=== PATIENT | female | born 1940 | race Caucasian/White ===

== ENCOUNTER 2019-05-06 18:07 | Inpatient (IN) | payer OTHER ==
[~2019-05-06] VITALS: Ht 160 cm; Wt 49.9 kg
[~2019-05-06 18:07] MED LIST: LAC PO; LEVAQUIN750 MG PO
[2019-05-06 18:12] VITALS: Ht 160 cm; Wt 49.9 kg
[2019-05-06 21:01] LABS: CALCIUM 9.3 mg/dL (8.5-10.1); CARBON DIOXIDE 30.8 mmol/L (21-32); CHLORIDE SERUM 99 mmol/L (98-107); GLUCOSE SERUM 99 mg/dL (74-106); POTASSIUM SERUM 4.2 mmol/L (3.5-5.1); SODIUM SERUM 138 mmol/L (136-145)
[2019-05-06 21:06] LABS: ALBUMIN 3.6 g/dL (3.4-5.0); ALKALINE PHOSPHATASE 58 U/L (46-116); ALT/SGPT 20 U/L (14-59); AST/SGOT 32 U/L (15-37); BILIRUBIN TOTAL 0.91 mg/dL (0.20-1.00); TOTAL PROTEIN, SERUM 7.9 g/dL (6.4-8.2)
[2019-05-06] MEDS ORDERED: DURAGESIC1 EAC1 TOP (21:12)
[2019-05-06] MEDS ORDERED: APAP/OXYCODONE1 TA4 PO (21:13)
[2019-05-06] MEDS ORDERED: ELA50 PO (21:14)
[2019-05-06] MEDS ORDERED: GABAPENTIN100 M2 PO (21:14)
[2019-05-06] MEDS ORDERED: VENTOLIN H0.09 MG/A1 IH (21:15)
[2019-05-06] MEDS ORDERED: IPRATROPIUM BROM3 M2 IH (21:18)
[2019-05-06] MEDS ORDERED: TRELEGY ELLIPT1 EACH IH (21:18)
[2019-05-06 21:22] LABS: BASOPHIL % 0.2 % (0-2); PLATELET COUNT 222 x10^3mcL (130-400); RED CELL DISTRIBUTION WIDTH 14.9 % (11.5-14.5)
[2019-05-06 21:39] LABS: CHOLESTEROL/HDL RATIO 3.9
[2019-05-06 21:41] LABS: FREE T4 1.05 ng/dL (0.76-1.46); FREE THYROXINE INDEX 1.6 ug/dL (1.4-4.5); T4(THYROXINE) 5.4 ug/dL (4.7-13.3)
[2019-05-06 21:46] LABS: T3 TOTAL 0.92 ng/mL
[2019-05-07] VITALS (7 sets, daily range): BP systolic 105–160; BP diastolic 57–98
[2019-05-07 04:45] LABS: microscopic required? YES; urine erythrocyte TRACE (NEGATIVE)
[2019-05-07 06:29] LABS: BASOPHIL % 0.3 % (0-2); PLATELET COUNT 218 x10^3mcL (130-400)
[2019-05-07 06:47] LABS: CALCIUM 8.8 mg/dL (8.5-10.1); CARBON DIOXIDE 28.6 mmol/L (21-32); CHLORIDE SERUM 98 mmol/L (98-107); CREATININE SERUM 0.9 mg/dL (0.6-1.0); GLUCOSE SERUM 91 mg/dL (74-106); POTASSIUM SERUM 4.7 mmol/L (3.5-5.1); SODIUM SERUM 137 mmol/L (136-145)
[2019-05-07 06:53] LABS: RED CELL DISTRIBUTION WIDTH 14.6 % (11.5-14.5)
[2019-05-08 05:43] VITALS: BP 157/67
[2019-05-08 06:14] LABS: BASOPHIL % 0.1 % (0-2); PLATELET COUNT 205 x10^3mcL (130-400); RED CELL DISTRIBUTION WIDTH 14.3 % (11.5-14.5)
[2019-05-08 07:16] LABS: CALCIUM 9.1 mg/dL (8.5-10.1); CARBON DIOXIDE 29.1 mmol/L (21-32); CHLORIDE SERUM 98 mmol/L (98-107); CREATININE SERUM 0.8 mg/dL (0.6-1.0); GLUCOSE SERUM 125 mg/dL (74-106); MAGNESIUM 2.2 mg/dL (1.8-2.4); PHOSPHOROUS 3.5 mg/dL (2.5-4.9); POTASSIUM SERUM 4.4 mmol/L (3.5-5.1); SODIUM SERUM 137 mmol/L (136-145)
[2019-05-08 08:38] VITALS: BP 160/67
[2019-05-08 14:00] VITALS: BP 158/50
[2019-05-08 16:02] VITALS: BP 166/78
[2019-05-08 20:13] VITALS: BP 159/77
[2019-05-09 05:29] VITALS: BP 157/76
[2019-05-09 06:34] LABS: PLATELET COUNT 244 x10^3mcL (130-400)
[2019-05-09 06:46] LABS: BASOPHIL % 0 % (0-2); RED CELL DISTRIBUTION WIDTH 15.1 % (11.5-14.5)
[2019-05-09 06:56] LABS: CARBON DIOXIDE 30.4 mmol/L (21-32); CHLORIDE SERUM 99 mmol/L (98-107); CREATININE SERUM 0.8 mg/dL (0.6-1.0); GLUCOSE SERUM 127 mg/dL (74-106); MAGNESIUM 2.1 mg/dL (1.8-2.4); PHOSPHOROUS 2.9 mg/dL (2.5-4.9); POTASSIUM SERUM 4.4 mmol/L (3.5-5.1); SODIUM SERUM 139 mmol/L (136-145)
[2019-05-09 08:34] VITALS: BP 145/64
[2019-05-09 12:56] VITALS: BP 110/54
[2019-05-09 16:37] VITALS: BP 114/53
[2019-05-09 22:11] VITALS: BP 113/53
[2019-05-10 06:46] VITALS: BP 150/72
[2019-05-10 09:04] VITALS: BP 135/66
[2019-05-10 11:51] VITALS: BP 115/55
[2019-05-10 14:57] VITALS: BP 115/55
== END 2019-05-10 16:04 | disposition home health service (06) | DRG 480 ==
LOC: ED 18:07 → MU 21:04 → DU 21:04 → MU 23:14
PROVIDERS: Emergency Medicine; Neuromusculoskeletal Medicine, Sports Medicine; ADMIT Family Medicine
PROC: 0QS704Z Reposition Left Upper Femur with Internal Fixation Device, Open Approach (ICD-10-PCS; principal; 2019-05-08 09:30)
DX: S72.012A Unspecified intracapsular fracture of left femur, initial encounter for closed fracture (principal); N17.0 Acute kidney failure with tubular necrosis; J96.10 Chronic respiratory failure, unspecified whether with hypoxia or hypercapnia; Z68.1 Body mass index [BMI] 19.9 or less, adult; D64.9 Anemia, unspecified; I71.4 Abdominal aortic aneurysm, without rupture; G89.29 Other chronic pain; M81.0 Age-related osteoporosis without current pathological fracture; J44.9 Chronic obstructive pulmonary disease, unspecified; F32.9 Major depressive disorder, single episode, unspecified; F41.9 Anxiety disorder, unspecified; Z99.81 Dependence on supplemental oxygen; Z79.51 Long term (current) use of inhaled steroids; Z79.891 Long term (current) use of opiate analgesic; Z87.891 Personal history of nicotine dependence; Z82.49 Family history of ischemic heart disease and other diseases of the circulatory system; W18.09XA Striking against other object with subsequent fall, initial encounter; Y92.009 Unspecified place in unspecified non-institutional (private) residence as the place of occurrence of the external cause
CPT/HCPCS: 76001; 84439; 90658; 90732; 97110-GP; 97116-GP; G0378; J0690; J1170; J1644; J2060; J2175; J2250; J2270; J2405; J3010; J3490; J7030; J7050; Q0092; Q9967

== ENCOUNTER → 2019-10-15 | Outpatient (CLI) | payer OTHER ==
[~2019-10-15] MED LIST changes: +APAP/OXYCODONE1 TA4 PO; +DURAGESIC1 EAC1 TOP; +ELA50 PO; +GABAPENTIN100 M2 PO; +IPRATROPIUM BROM3 M2 IH; +TRELEGY ELLIPT1 EACH IH; +VENTOLIN H0.09 MG/A1 IH
== END | disposition home or self-care (01) ==
LOC: RD 14:56
PROVIDERS: ATTEND Neuromusculoskeletal Medicine, Sports Medicine
DX: S72.002D Fracture of unspecified part of neck of left femur, subsequent encounter for closed fracture with routine healing (principal); X58.XXXD Exposure to other specified factors, subsequent encounter

== ENCOUNTER 2019-11-05 06:13 | Day surgery (SDC) | payer OTHER ==
[2019-10-30 14:47] LABS: BASOPHIL % 0.6 % (0-2); PLATELET COUNT 289 x10^3mcL (130-400)
[2019-10-30 14:55] LABS: RED CELL DISTRIBUTION WIDTH 14.8 % (11.5-14.5)
[2019-10-30 15:05] LABS: CALCIUM 9.5 mg/dL (8.5-10.1); CHLORIDE SERUM 101 mmol/L (98-107); GLUCOSE SERUM 101 mg/dL (74-106); POTASSIUM SERUM 5.3 mmol/L (3.5-5.1); SODIUM SERUM 140 mmol/L (136-145)
[2019-10-30 15:10] LABS: microscopic required? YES; urine erythrocyte NEGATIVE (NEGATIVE)
--- NOTE | 2019-10-31 08:44 | NUR ---
COPY OF LABS, CXR AND EKG FAXED TO DR ADAMES AND COPIES TAKEN TO OR FOR ANESTHESIOLOGIST TO REVIEW.
--- NOTE | 2019-11-04 08:53 | NUR ---
ANESTHESIOLOGIST REVIEWED LABS, CXR AND EKG. OK FOR SURGERY. NO FURTHER ORDERS.
--- NOTE | 2019-11-04 10:24 | NUR ---
DR. ADAMES REVIEWED LAB, EKG AND CXR RESULTS. NO FURTHER ORDER RECEIVED AT THIS TIME. DR. ADAMES WAS INFORMED THAT THE PATIENT NEEDS H&P. DR. ADAMES WILL BRING THE PATIENT'S H&P TOMORROW BEFORE THE SURGERY.
[~2019-11-05] VITALS: Ht 154.9 cm; Wt 38.5 kg
[2019-11-05 07:00] VITALS: BP 154/69
[2019-11-05 07:04] LABS: CALCIUM 9.7 mg/dL (8.5-10.1); CARBON DIOXIDE 32.2 mmol/L (21-32); CHLORIDE SERUM 105 mmol/L (98-107); CREATININE SERUM 1.1 mg/dL (0.6-1.0); GLUCOSE SERUM 123 mg/dL (74-106); POTASSIUM SERUM 5.1 mmol/L (3.5-5.1); SODIUM SERUM 143 mmol/L (136-145)
[2019-11-05 12:43] VITALS: BP 115/64
== END 2019-11-05 12:20 | disposition home or self-care (01) ==
LOC: DS 06:13 → OR 07:30 → DS 12:20
PROVIDERS: ATTEND Neuromusculoskeletal Medicine, Sports Medicine
DX: T84.091A Other mechanical complication of internal left hip prosthesis, initial encounter (principal); I10 Essential (primary) hypertension; J44.9 Chronic obstructive pulmonary disease, unspecified; F32.9 Major depressive disorder, single episode, unspecified; I25.2 Old myocardial infarction; D64.9 Anemia, unspecified; Z99.81 Dependence on supplemental oxygen; Z79.899 Other long term (current) drug therapy; Z20.828 Contact with and (suspected) exposure to other viral communicable diseases; Y83.8 Other surgical procedures as the cause of abnormal reaction of the patient, or of later complication, without mention of misadventure at the time of the procedure
CPT/HCPCS: J0690; J2175; J2930; J3010; J3490; U0003-CS